=== PATIENT | female | born 1995 | race Hispanic/Latino ===

== ENCOUNTER 2019-01-11 19:17 | Emergency (ER) | payer OTHER ==
[2019-01-11 20:11] LABS: Urine Blood NEGATIVE (NEG); Urine Glucose NEGATIVE (NEG); Urine Protein NEGATIVE (NEG)
[2019-01-11 20:25] LABS: Urine Amorphous Sediment TRACE /HPF (NONE SEEN); Urine Bacteria <20 /HPF (<20); Urine Culture Reflex Order NOT NEEDED; Urine Mucus SLIGHT /HPF (NONE SEEN); Urine RBC <5 /HPF (NONE SEEN)
[2019-01-11] MEDS ORDERED: AZITHROMYCIN 1 GM PACKET ONE (21:05)
[2019-01-11] MEDS ORDERED: CEFTRIAXONE 250 MG/VIAL ONE (21:05)
[2019-01-11] MEDS ORDERED: WATER FOR INJ,STERILE 10 ML ONE (21:06)
--- NOTE | 2019-01-11 21:10 | ER ---
Nurse's Notes [facility] Name: Gabriella Henley Age: 23 yrs Sex: Female : 1995 Arrival Date: 01/11/2019 Time: 19:21 Bed 13 Private MD: Diagnosis: Vaginal Discharge; Bacterial Vaginosis Presentation: 01/11 19:25 Presenting complaint: Patient states: White vaginal discharge after unprotected sex 2 aj days ago with vaginal pain and itching. Transition of care: patient was not received from another setting of care. Onset of symptoms was January 09, 2019. Risk Assessment: Do you want to hurt yourself or someone else? Patient reports no desire to harm self or others. Initial Sepsis Screen: Does the patient meet any 2 criteria? No. Patient's initial sepsis screen is negative. Does the patient have a suspected source of infection? No. Patient's initial sepsis screen is negative. Care prior to arrival: None. 19:25 Method Of Arrival: Ambulatory aj 19:25 Acuity: BENITA 3 aj Triage Assessment: 19:26 General: Appears in no apparent distress. comfortable, Behavior is calm, cooperative, aj appropriate for age. Pain: Complains of pain in pelvis. Neuro: Level of Consciousness is awake, alert, obeys commands, Oriented to person, place, time, situation, Appropriate for age. Respiratory: Airway is patent Respiratory effort is even, unlabored, Respiratory pattern is regular, symmetrical. : Reports discharge, white, pain in suprapubic area. 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 - Social history:: Smoking status: Patient/guardian denies using tobacco. - Ebola Screening: : No symptoms or risks identified at this time. Screenin:33 Abuse screen: Denies threats or abuse. Denies injuries from another. Nutritional lp1 screening: No deficits noted. Tuberculosis screening: No symptoms or risk factors identified. Fall Risk None identified. Assessment: 19:45 General: Appears in no apparent distress. Behavior is calm, cooperative, appropriate lp1 for age. Pain: Denies pain. Neuro: Level of Consciousness is awake, alert, obeys commands, Oriented to person, place, time, situation. Cardiovascular: Patient's skin is warm and dry. Respiratory: No deficits noted. GI: No deficits noted. : Reports vaginal itching. EENT: No deficits noted. Derm: Skin is pink, warm \T\ dry. Musculoskeletal: No deficits noted. 21:06 Reassessment: Patient appears in no apparent distress at this time. Patient is alert, lp1 oriented x 3, equal unlabored respirations, skin warm/dry/pink. Vital Signs: 19:26 BP 115 / 58; Pulse 78; Resp 18; Temp 98.3; Pulse Ox 99% on R/A; Weight 56.7 kg; Height aj 4 ft. 11 in. (149.86 cm); 21:06 BP 110 / 64; Pulse 62; Resp 16; Pulse Ox 100% on R/A; Pain 0/10; lp1 19:26 Body Mass Index 25.25 (56.70 kg, 149.86 cm) ED Course: 19:21 Patient arrived in ED. ag3 19:26 Triage completed. aj 19:26 Arm band placed on left wrist. Patient placed in an exam room. 19:29 Gerardo Whyte PA is PHCP. [facility] 19:29 Amado Quiroga MD is Attending Physician. [facility] 19:43 Gretel Fitzpatrick, ROWAN is Primary Nurse. lp1 19:45 Patient has correct armband on for positive identification. lp1 20:15 Assist provider with pelvic exam: Set up pelvic tray. Performed by Gerardo HANSON lp1 Specimens sent to lab. 20:34 Patient did not have IV access during this emergency room visit. lp1 Administered Medications: 21:06 Drug: Rocephin (cefTRIAXone) 250 mg Route: IM; Site: right deltoid; lp1 21:29 Follow up: Response: No adverse reaction lp1 21:06 Drug: AZITHromycin 1 grams Route: PO; lp1 21:29 Follow up: Response: No adverse reaction 1 Outcome: 21:09 Discharge ordered by . [facility] 21:29 Discharged to home ambulatory. lp1 21:29 Condition: good 21:29 Discharge instructions given to patient, Instructed on discharge instructions, follow up and referral plans. medication usage, Demonstrated understanding of instructions, follow-up care, medications, Prescriptions given X 1. 21:30 Patient left the ED. lp1 Signatures: Lisa Leos RN RN Gerardo De Souza PA PA jmm Pena, Laura, RN RN lp1 Hannah Fitzpatrick ag3
--- NOTE | 2019-01-11 21:10 | EDPHYS ---
Physician Documentation [facility] Name: Gabriella Henley Age: 23 yrs Sex: Female : 1995 Arrival Date: 01/11/2019 Time: 19:21 Bed 13 Private MD: ED Physician Amado Quiroga HPI: 01/11 19:40 This 23 yrs old Female presents to ER via Ambulatory with complaints of jmm Vaginal Discharge. 19:40 The patient presents with vaginal discharge. Onset: The symptoms/episode began/occurred jmm gradually, 2 day(s) ago. Modifying factors: The symptoms are alleviated by nothing, the symptoms are aggravated by nothing. Associated signs and symptoms: Pertinent positives: vaginal discharge, Pertinent negatives: fever. Patient complains of itching and discharge. Recent intercourse. Denies abdominal pain, denies fever. . 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 - Social history:: Smoking status: Patient/guardian denies using tobacco. - Ebola Screening: : No symptoms or risks identified at this time. ROS: 19:40 Constitutional: Negative for fever, chills, and weight loss, Cardiovascular: Negative jmm for chest pain, palpitations, and edema, Respiratory: Negative for shortness of breath, cough, wheezing, and pleuritic chest pain. 19:40 : Positive for urinary symptoms, vaginal discharge, vaginal itching. 19:40 All other systems are negative. Exam: 19:40 Constitutional: This is a well developed, well nourished patient who is awake, alert, jmm and in no acute distress. Head/Face: atraumatic. Eyes: EOMI, no conjunctival erythema appreciated ENT: Moist Mucus Membranes Neck: Trachea midline, Supple Chest/axilla: Normal chest wall appearance and motion. Cardiovascular: Regular rate and rhythm. No edema appreciated 19:40 Back: Normal ROM Skin: General appearance color normal MS/ Extremity: Moves all extremities, no obvious deformities appreciated, no edema noted to the lower extremities Neuro: Awake and alert, normal gait Psych: Behavior is normal, Mood is normal, Patient is cooperative and pleasant 19:40 Cardiovascular: Rate: normal, Rhythm: regular. 19:40 Respiratory: the patient does not display signs of respiratory distress, Respirations: normal, Breath sounds: are clear throughout. 19:40 : Pelvic Exam: bimanual exam reveals normal findings, no cervical motion tenderness, discharge, frothy. Vital Signs: 19:26 BP 115 / 58; Pulse 78; Resp 18; Temp 98.3; Pulse Ox 99% on R/A; Weight 56.7 kg; Height aj 4 ft. 11 in. (149.86 cm); 21:06 BP 110 / 64; Pulse 62; Resp 16; Pulse Ox 100% on R/A; Pain 0/10; lp1 19:26 Body Mass Index 25.25 (56.70 kg, 149.86 cm) [facility]: 19:42 Patient medically screened. [facility] 21:08 Data reviewed: vital signs, nurses notes. Counseling: I had a detailed discussion with [facility] the patient and/or guardian regarding: the historical points, exam findings, and any diagnostic results supporting the discharge/admit diagnosis, lab results, the need for outpatient follow up, to return to the emergency department if symptoms worsen or persist or if there are any questions or concerns that arise at home. ED course: Patient is advised to follow up with pcp for reevaluation and otherwise advised to return to the ED if she develops pain or fever. Patient understood and agrees with the plan of care. . 01/11 19:42 Order name: GC (GONORR/CHLAMYDIA) Probe [facility] 01/11 19:42 Order name: Wet Prep; Complete Time: 21:12 [facility] 01/11 19:42 Order name: Urine Microscopic Only; Complete Time: 20:30 [facility] 01/11 20:09 Order name: Urine Dipstick--Ancillary (enter results) 01/11 20:09 Order name: Urine --Ancillary (enter results); Complete Time: 20:30 01/11 20:11 Order name: Urine Dipstick-Ancillary; Complete Time: 20:30 [facility] 01/11 19:42 Order name: Gown patient; Complete Time: 20:31 [facility] 01/11 19:42 Order name: Pelvic Exam Setup; Complete Time: 20:31 [facility] 01/11 19:42 Order name: Urine Dipstick-Ancillary (obtain specimen); Complete Time: 20:08 [facility] Administered Medications: 21:06 Drug: Rocephin (cefTRIAXone) 250 mg Route: IM; Site: right deltoid; lp1 21:29 Follow up: Response: No adverse reaction lp1 21:06 Drug: AZITHromycin 1 grams Route: PO; lp1 21:29 Follow up: Response: No adverse reaction lp1 Disposition: 21:08 Chart complete. [facility] 01/12 07:19 Co-signature as Attending Physician, Amado Quiroga MD I agree with the assessment and antione plan of care. Disposition: 01/11/19 21:09 Discharged to Home. Impression: Vaginal Discharge, Bacterial Vaginosis. - Condition is Stable. - Discharge Instructions: Bacterial Vaginosis, Pelvic Exam. - Prescriptions for Flagyl 500 mg Oral Tablet - take 1 tablet by ORAL route every 12 hours for 7 days; 14 tablet. - Medication Reconciliation Form, Thank You Letter, Antibiotic Education, Prescription Opioid Use form. - Follow up: Private Physician; When: 2 - 3 days; Reason: Recheck today's complaints, Continuance of care, Re-evaluation by your physician. Signatures: Dispatcher [employer] EDLisa Downey, RN Amado Navarrete MD MD cha Mickail, Joel, PA PA [facility] Gretel Fitzpatrick RN RN lp1 Corrections: (The following items were deleted from the chart) 01/11 21:13 21:09 01/11/2019 21:09 Discharged to Home. Impression: Vaginal Discharge. Condition is [facility] Stable. Forms are Medication Reconciliation Form, Thank You Letter, Antibiotic Education, Prescription Opioid Use. Follow up: Private Physician; When: 2 - 3 days; Reason: Recheck today's complaints, Continuance of care, Re-evaluation by your physician. [facility] 21:30 21:13 01/11/2019 21:09 Discharged to Home. Impression: Vaginal Discharge; Bacterial lp1 Vaginosis. Condition is Stable. Discharge Instructions: Pelvic Exam, Bacterial Vaginosis. Prescriptions for Flagyl 500 mg Oral Tablet - take 1 tablet by ORAL route every 12 hours for 7 days; 14 tablet. and Forms are Medication Reconciliation Form, Thank You Letter, Antibiotic Education, Prescription Opioid Use. Follow up: Private Physician; When: 2 - 3 days; Reason: Recheck today's complaints, Continuance of care, Re-evaluation by your physician. [facility]
[2019-01-15 10:42] LABS: C.trachomatis RNA,TMA Not Detected (Not Detected)
== END 2019-01-11 21:30 | disposition home or self-care (01) ==
LOC: ER 19:17
DX: N76.0 Acute vaginitis (principal)
CPT/HCPCS: 81003; 81015; 81025; 87210; 87490; 87590; 96372; 99284; J0696

== ENCOUNTER 2022-01-03 09:12 | Emergency (ER) | payer SELFPAY ==
--- NOTE | 2022-01-03 11:11 | EDPHYS ---
Physician Documentation [facility] Name: Gabriella Vance Age: 26 yrs Sex: Female : 1995 Arrival Date: 01/03/2022 Time: 09:14 Bed 12 Private MD: ED Physician Antonio Max HPI: 01/03 10:00 This 26 yrs old Female presents to ER via Ambulatory with complaints of Sore cp Throat. 10:00 The patient presents with sore throat. The patient describes throat pain as constant. cp Onset: The symptoms/episode began/occurred 3 day(s) ago, and became worse today. Severity of symptoms: in the emergency department the symptoms are unchanged, despite home interventions. Associated signs and symptoms: Pertinent positives: cough, Pertinent negatives diarrhea, dysphagia, fever, headache, vomiting. 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 - Social history:: Smoking status: Patient denies any tobacco usage or history of. ROS: 10:05 Constitutional: Negative for body aches, chills, fever, poor PO intake. cp 10:05 Respiratory: Positive for cough, Negative for shortness of breath, wheezing. cp 10:05 Abdomen/GI: Negative for abdominal pain, nausea, vomiting, and diarrhea. 10:05 Cardiovascular: Negative for chest pain. cp 10:05 Eyes: Negative for injury, pain, redness, and discharge. cp 10:05 ENT: Negative for drainage from ear(s), ear pain, sinus congestion, sinus pain, difficulty swallowing, difficulty handling secretions. 10:05 Neck: Negative for stiffness. 10:05 Neuro: Negative for altered mental status, headache, weakness. 10:05 All other systems are negative. Exam: 10:10 Constitutional: The patient appears in no acute distress, alert, awake, non-toxic, well cp developed, well nourished. 10:10 Head/Face: Normocephalic, atraumatic. cp 10:10 Eyes: Periorbital structures: appear normal, Conjunctiva: normal, no exudate, no injection, Lids and lashes: appear normal, bilaterally. 10:10 ENT: External ear(s): are unremarkable, Ear canal(s): are normal, clear, TM's: dullness, bilaterally, Nose: is normal, Mouth: Lips: moist, Oral mucosa: moist, Posterior pharynx: Airway: no evidence of obstruction, patent, Tonsils: bilaterally enlarged, with erythema, with exudate, Uvula: midline, erythema, that is moderate, Voice: is normal. 10:10 Neck: ROM/movement: is normal, is supple, without pain, no range of motions limitations, no meningismus, no nuchal rigidity, Lymph nodes: lymphadenopathy is appreciated, anterior cervical nodes. 10:10 Chest/axilla: Inspection: normal. 10:10 Cardiovascular: Rate: normal, Rhythm: regular. 10:10 Respiratory: the patient does not display signs of respiratory distress, Respirations: normal, no use of accessory muscles, no retractions, labored breathing, is not present, Breath sounds: are clear throughout, no decreased breath sounds, no stridor, no wheezing. 10:10 Abdomen/GI: Inspection: abdomen appears normal, Palpation: abdomen is soft and non-tender, in all quadrants. Vital Signs: 09:25 BP 116 / 77; Pulse 92; Resp 16; Temp 98.1; Pulse Ox 100% on R/A; Weight 68.04 kg; iw Height 4 ft. 11 in. (149.86 cm); Pain 9/10; 09:25 Body Mass Index 30.30 (68.04 kg, 149.86 cm) iw MDM: 09:31 Patient medically screened. cp 10:00 Differential diagnosis: group A strep tonsillitis, peritonsillar abscess pharyngitis, cp retropharyngeal abcess tonsillitis, uvulitis. 11:10 Data reviewed: vital signs, nurses notes, lab test result(s). cp 11:10 Counseling: I had a detailed discussion with the patient and/or guardian regarding: the cp historical points, exam findings, and any diagnostic results supporting the discharge/admit diagnosis, lab results, to return to the emergency department if symptoms worsen or persist or if there are any questions or concerns that arise at home. 01/03 09:41 Order name: Strep cp 01/03 10:11 Order name: Throat Culture EDMS Administered Medications: No medications were administered Disposition Summary: 01/03/22 11:10 Discharge Ordered Location: Home cp Problem: new cp Symptoms: are unchanged cp Condition: Stable cp Diagnosis - Acute tonsillitis, unspecified cp Followup: cp - With: Private Physician - When: 1 - 2 days - Reason: Worsening of condition Discharge Instructions: - Discharge Summary Sheet cp - Tonsillitis cp Forms: - Medication Reconciliation Form cp - Thank You Letter cp - Antibiotic Education cp - Prescription Opioid Use cp - Work release form eb Prescriptions: - clarithromycin 500 mg Oral tablet - take 1 tablet by ORAL route 2 times per day; 20 tablet; Refills: 0, Product cp Selection Permitted - Tessalon Perles 100 mg Oral Capsule - take 1 capsule by ORAL route every 8 hours As needed; 15 capsule; Refills: 0, cp Product Selection Permitted Signatures: Dispatcher [employer] Alia West RN RN Amado Maddox PA PA cp
--- NOTE | 2022-01-03 11:11 | ER ---
Nurse's Notes [facility] Name: Gabriella Vance Age: 26 yrs Sex: Female : 1995 Arrival Date: 01/03/2022 Time: 09:14 Bed 12 Private MD: Diagnosis: Acute tonsillitis, unspecified Presentation: 01/03 09:25 Chief complaint: Patient states: a week ago I had a cold, for past three days has sore iw throat, worse today , no fever. Coronavirus screen: At this time, the client does not indicate any symptoms associated with coronavirus-19. Ebola Screen: Patient negative for fever greater than or equal to 101.5 degrees Fahrenheit, and additional compatible Ebola Virus Disease symptoms Patient denies exposure to infectious person. Patient denies travel to an Ebola-affected area in the 21 days before illness onset. No symptoms or risks identified at this time. Initial Sepsis Screen: Does the patient meet any 2 criteria? No. Patient's initial sepsis screen is negative. Does the patient have a suspected source of infection? No. Patient's initial sepsis screen is negative. Risk Assessment: Do you want to hurt yourself or someone else? Patient reports no desire to harm self or others. Onset of symptoms was December 31, 2021. 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 - Social history:: Smoking status: Patient denies any tobacco usage or history of. Screenin:20 Abuse screen: Denies threats or abuse. Denies injuries from another. Nutritional iw screening: No deficits noted. Tuberculosis screening: No symptoms or risk factors identified. Fall Risk None identified. Assessment: 10:20 General: Appears in no apparent distress. Behavior is calm, cooperative. Pain: iw Complains of pain in throat. Respiratory: Airway is patent Respiratory effort is even, unlabored. EENT: Throat has enlarged tonsils on right. Vital Signs: 09: BP 116 / 77; Pulse 92; Resp 16; Temp 98.1; Pulse Ox 100% on R/A; Weight 68.04 kg; iw Height 4 ft. 11 in. (149.86 cm); Pain 9/; 09:25 Body Mass Index 30.30 (68.04 kg, 149.86 cm) iw ED Course: 09:14 Patient arrived in ED. am2 09:19 Amado Brown PA is PHCP. cp 09:19 Antonio Max MD is Attending Physician. cp 09:26 Triage completed. iw 09:26 Arm band placed on. iw 09:27 Alia Bosch, RN is Primary Nurse. iw 09:56 Strep Sent. iw Administered Medications: No medications were administered Outcome: 11:10 Discharge ordered by . cp 11:15 Patient left the ED. iw Signatures: Alia Bosch RN RN iw Amado Brown PA PA cp Lisa Malagon am2
[2022-01-03 11:24] VITALS: BP 116/77; TEMP 98.1; O2SAT 100
== END 2022-01-03 11:15 | disposition home or self-care (01) ==
LOC: ER 09:12
DX: J03.90 Acute tonsillitis, unspecified (principal)
CPT/HCPCS: 87070; 87081; 99282

== ENCOUNTER 2022-01-20 22:02 | Emergency (ER) | payer SELFPAY ==
[2022-01-20 23:40] LABS: Urine Blood Negative (Negative); Urine Glucose Negative (Negative); Urine Protein 1+ (Negative); Urine pH 8.5 (5.0-7.0)
[2022-01-21 00:27] LABS: Urine Bacteria 20-50 /HPF (<20); Urine RBC <5 /HPF (NONE SEEN)
--- NOTE | 2022-01-21 01:22 | EDPHYS ---
Physician Documentation [facility] Name: Gabriella Vance Age: 26 yrs Sex: Female : 1995 Arrival Date: 01/20/2022 Time: 22:04 Bed 11 Private MD: ED Physician Amado Quiroga HPI: 01/21 01:16 This 26 yrs old Female presents to ER via Ambulatory with complaints of Sore antione Throat. 01:16 The patient presents with sore throat. The patient describes throat pain as burning. antione Onset: The symptoms/episode began/occurred 8 day(s) ago. Severity of symptoms: At their worst the symptoms were mild, in the emergency department the symptoms are unchanged. Modifying factors: The symptoms are alleviated by nothing, the symptoms are aggravated by nothing. Associated signs and symptoms: The patient has no apparent associated signs or symptoms. The patient has experienced similar episodes in the past, a few times. 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 - Social history:: Smoking status: Patient denies any tobacco usage or history of. ROS: 01/21 01:17 Constitutional: Negative for fever, chills, and weight loss, Eyes: Negative for injury, antione pain, redness, and discharge, Neck: Negative for injury, pain, and swelling, Cardiovascular: Negative for chest pain, palpitations, and edema, Respiratory: Negative for shortness of breath, cough, wheezing, and pleuritic chest pain, Abdomen/GI: Negative for abdominal pain, nausea, vomiting, diarrhea, and constipation, Back: Negative for injury and pain, : Negative for injury, bleeding, discharge, and swelling, MS/Extremity: Negative for injury and deformity, Skin: Negative for injury, rash, and discoloration, Neuro: Negative for headache, weakness, numbness, tingling, and seizure, Psych: Negative for depression, anxiety, suicide ideation, homicidal ideation, and hallucinations, Allergy/Immunology: Negative for hives, rash, and allergies, Endocrine: Negative for neck swelling, polydipsia, polyuria, polyphagia, and marked weight changes, Hematologic/Lymphatic: Negative for swollen nodes, abnormal bleeding, and unusual bruising. ENT: Positive for sore throat. Exam: 01:17 Constitutional: This is a well developed, well nourished patient who is awake, alert, antione and in no acute distress. Head/Face: Normocephalic, atraumatic. Eyes: Pupils equal round and reactive to light, extra-ocular motions intact. Lids and lashes normal. Conjunctiva and sclera are non-icteric and not injected. Cornea within normal limits. Periorbital areas with no swelling, redness, or edema. ENT: Nares patent. No nasal discharge, no septal abnormalities noted. Tympanic membranes are normal and external auditory canals are clear. Oropharynx with no redness, swelling, or masses, exudates, or evidence of obstruction, uvula midline. Mucous membranes moist. Neck: Trachea midline, no thyromegaly or masses palpated, and no cervical lymphadenopathy. Supple, full range of motion without nuchal rigidity, or vertebral point tenderness. No Meningismus. Chest/axilla: Normal chest wall appearance and motion. Nontender with no deformity. No lesions are appreciated. Cardiovascular: Regular rate and rhythm with a normal S1 and S2. No gallops, murmurs, or rubs. Normal PMI, no JVD. No pulse deficits. Respiratory: Lungs have equal breath sounds bilaterally, clear to auscultation and percussion. No rales, rhonchi or wheezes noted. No increased work of breathing, no retractions or nasal flaring. Abdomen/GI: Soft, non-tender, with normal bowel sounds. No distension or tympany. No guarding or rebound. No evidence of tenderness throughout. Back: No spinal tenderness. No costovertebral tenderness. Full range of motion. Female : Normal external genitalia. Skin: Warm, dry with normal turgor. Normal color with no rashes, no lesions, and no evidence of cellulitis. MS/ Extremity: Pulses equal, no cyanosis. Neurovascular intact. Full, normal range of motion. Neuro: Awake and alert, GCS 15, oriented to person, place, time, and situation. Cranial nerves II-XII grossly intact. Motor strength 5/5 in all extremities. Sensory grossly intact. Cerebellar exam normal. Normal gait. Psych: Awake, alert, with orientation to person, place and time. Behavior, mood, and affect are within normal limits. Vital Signs: 01/20 22:53 BP 119 / 81; Pulse 95; Resp 18; Temp 99.1; Pulse Ox 100% ; Weight 66.22 kg; Height 5 vc1 ft. 0 in. (152.40 cm); Pain 8/10; 01/21 01:38 BP 116 / 84 LA Sitting (auto/); Pulse 79 MON; Resp 16 S; Temp 98.1; Pulse Ox 97% on R/A;ds4 01/20 22:53 Body Mass Index 28.51 (66.22 kg, 152.40 cm) vc1 MDM: 01/20 23:56 Patient medically screened. [facility] 01/21 01:20 Differential diagnosis: laryngitis, pharyngitis. Data reviewed: vital signs, nurses [facility] notes, lab test result(s). Data interpreted: quality assurance monitor final: not applicable for this patient encounter. rate is 95 beats/min, rhythm is regular, Pulse oximetry: on room air is 100 %. Counseling: I had a detailed discussion with the patient and/or guardian regarding: the historical points, exam findings, and any diagnostic results supporting the discharge/admit diagnosis, lab results, the need for outpatient follow up, for definitive care, a family practitioner. 01/20 22:59 Order name: Flu; Complete Time: 01:09 [facility] 01/20 22:59 Order name: Strep; Complete Time: 01:09 [facility] 01/20 23:01 Order name: Group A Streptococcus Rapid Sc; Complete Time: 01: [facility] 01/20 23:01 Order name: COVID-19 SARS RT PCR (Document "Date of Onset" if Symptomatic) [facility] 01/20 23:40 Order name: Urine Microscopic Only; Complete Time: 01:09 [facility] 01/20 22:59 Order name: Urine Dipstick-Ancillary (obtain specimen); Complete Time: 23:41 [facility] 01/20 23:41 Order name: Urine Dipstick-Ancillary; Complete Time: 01:09 [facility] 01/20 23:41 Order name: Urine Test (obtain specimen); Complete Time: 23:41 [facility] 01/20 23:41 Order name: Urine --Ancillary (enter results); Complete Time: 01:09 [facility] 01/20 23:55 Order name: Throat Culture EDMS 01/21 00:29 Order name: Urine Culture EDMS Administered Medications: No medications were administered Disposition Summary: 01/21/22 01:21 Discharge Ordered Location: Home antione Problem: new antione Symptoms: have improved antione Condition: Stable antione Diagnosis - Acute pharyngitis, unspecified antione Followup: [facility] - With: Private Physician - When: 2 - 3 days - Reason: Recheck today's complaints, Continuance of care, Re-evaluation by your physician Discharge Instructions: - Discharge Summary Sheet antione - Pharyngitis antione - Sore Throat antione Forms: - Medication Reconciliation Form antione - Thank You Letter antione - Antibiotic Education antione - Prescription Opioid Use antione Signatures: Dispatcher [employer] Amado Moore MD MD cha Westbrook, MyKena mw2 Margartete Tirado RN RN vc1
--- NOTE | 2022-01-21 01:22 | ER ---
Nurse's Notes [facility] Name: Gabriella Vance Age: 26 yrs Sex: Female : 1995 Arrival Date: 01/20/2022 Time: 22:04 Bed 11 Private MD: Diagnosis: Acute pharyngitis, unspecified Presentation: 01/20 22:53 Chief complaint: Patient states: "I was here 2 weeks ago and diagnosed with tonsillitis vc1 but I don't think the antibiotic helped. (Pt stated she didn't finish the antibiotic) I also have this cough. I also have a burning sensation when I pee.". Coronavirus screen: Vaccine status: Patient reports being unvaccinated. cough unrelated to allergies, fever, sore throat, Client presents with at least one sign or symptom that may indicate coronavirus-19. Standard/surgical mask placed on the client. Provider contacted for isolation considerations. Ebola Screen: No symptoms or risks identified at this time. Initial Sepsis Screen: Does the patient meet any 2 criteria? No. Patient's initial sepsis screen is negative. Does the patient have a suspected source of infection? No. Patient's initial sepsis screen is negative. Risk Assessment: Do you want to hurt yourself or someone else? Patient reports no desire to harm self or others. Onset of symptoms is unknown. 22:53 Method Of Arrival: Ambulatory vc1 22:53 Acuity: BENITA 3 vc1 Triage Assessment: 01/21 01:38 General: Appears in no apparent distress. Behavior is calm, cooperative. 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 - Social history:: Smoking status: Patient denies any tobacco usage or history of. Screenin/16 01:37 Abuse screen: Denies threats or abuse. Denies injuries from another. Nutritional kd3 screening: No deficits noted. Tuberculosis screening: No symptoms or risk factors identified. Fall Risk None identified. Assessment: 01:37 Pain: Denies pain. Pain: Complains of pain in throat. Respiratory: Airway is patent kd3 Respiratory effort is even, unlabored. Respiratory: Breath sounds are clear bilaterally. EENT: Throat is reddened. Vital Signs: 01/20 22:53 BP 119 / 81; Pulse 95; Resp 18; Temp 99.1; Pulse Ox 100% ; Weight 66.22 kg; Height 5 vc1 ft. 0 in. (152.40 cm); Pain 8/10; 01/21 01:38 BP 116 / 84 LA Sitting (auto/); Pulse 79 MON; Resp 16 S; Temp 98.1; Pulse Ox 97% on R/A;ds4 01/20 22:53 Body Mass Index 28.51 (66.22 kg, 152.40 cm) vc1 ED Course: 01/20 22:04 Patient arrived in ED. bp1 22:56 Triage completed. vc1 22:57 Arm band placed on left wrist. vc1 23:56 Amado Quiroga MD is Attending Physician. antione 01/21 01:36 Annie Hoffman, RN is Primary Nurse. kd3 01:37 Patient has correct armband on for positive identification. kd3 01:37 No provider procedures requiring assistance completed. Patient did not have IV access kd3 during this emergency room visit. Administered Medications: No medications were administered Medication: 01:38 VIS not applicable for this client. kd3 Outcome: 01:21 Discharge ordered by . [facility] 01:37 Discharged to home ambulatory. kd3 01:37 Condition: stable 01:37 Discharge instructions given to patient, family, Instructed on discharge instructions, follow up and referral plans. Demonstrated understanding of instructions, follow-up care. 01:47 Patient left the ED. kd3 Signatures: Amado Quiroga MD MD cha Swanson, Donovan ds4 Justyna Miranda bp1 Annie Hoffman, RN RN kd3 Margarette Tirado RN RN vc1
[2022-01-21 01:52] VITALS: BP 116/84; TEMP 98.1; O2SAT 97
== END 2022-01-21 01:47 | disposition home or self-care (01) ==
LOC: ER 22:02
DX: J02.9 Acute pharyngitis, unspecified (principal); Z20.822 Contact with and (suspected) exposure to COVID-19
CPT/HCPCS: 81003; 81015; 81025; 87070; 87081; 87086; 87088; 87804; 99281; U0003

== ENCOUNTER 2022-06-16 12:07 | Emergency (ER) | payer OTHER, SELFPAY ==
[2022-06-16 13:22] LABS: Absolute Lymphocytes (CBC) 1.5 K/uL (0.7-4.9); Hematocrit 40.9 % (36.0-45.0); MCV 80.3 fL (80-100); MPV 9.1 fL (7.6-11.3); RBC Red Blood Cell Count 5.09 M/uL (3.86-4.86)
[2022-06-16 13:48] LABS: Urine Blood Negative (Negative); Urine Glucose Negative (Negative); Urine Protein Negative (Negative); Urine Specific Gravity 1.025 (1.005-1.030); Urine pH 5.5 (5.0-7.0)
[2022-06-16 13:53] LABS: Potassium 3.5 mmol/L (3.5-5.1)
[2022-06-16 14:46] LABS: Urine Specific Gravity/Preg 1.025 (1.005-1.030)
--- NOTE | 2022-06-16 15:02 | RAD REPORT ---
EXAM DESCRIPTION: US - Transvaginal OB - 06/16/2022 2:53 pm CLINICAL HISTORY: ABD CRAMPING, COMPARISON: No comparisons FINDINGS: Normal size uterus is seen with no myometrial abnormality identified. Single normal shaped intrauterine gestational sac is identified. Yolk sac and pole are seen. Yolk sac and crown-rum p length measurements yield a 7 week 0 day age. Calculated LIDIA is 02/02/2023. Heart rate is 153 BPM. A minimal subchorionic hemorrhage is present along the inferior margin of the gestational sac. This is not clinically significant size. Right ovary is unremarkable. No right adnexal abnormality. Left ovary was not visualized possibly due to prominent bowel. No left adnexal mass seen. IMPRESSION: Single 7 week 0 day IUP with normal heart rate. Small subchorionic hemorrhage is seen currently not of a clinically significant size. No adnexal abnormality seen.
--- NOTE | 2022-06-16 16:12 | EDPHYS ---
Physician Documentation [facility] Name: Gabriella Vance Age: 27 yrs Sex: Female : 1995 Arrival Date: 06/16/2022 Time: 12:07 Bed 16 Private MD: ED Physician Antonio Max HPI: 06/16 18:34 This 27 yrs old Female presents to ER via Ambulatory with complaints of Pelvic snw Pain. 18:34 The patient presents with a desire for a test, tenderness to mid pelvic area snw x 4 days, no bleeding, no discharge. Onset: The symptoms/episode began/occurred suddenly, 4 day(s) ago, and became persistent. Associated signs and symptoms: The patient has no apparent associated signs or symptoms. The patient has not experienced similar symptoms in the past. 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 - Social history:: Smoking status: Patient denies any tobacco usage or history of. ROS: 18:32 Constitutional: Negative for fever, chills, and weight loss, Eyes: Negative for injury, snw pain, redness, and discharge, ENT: Negative for injury, pain, and discharge, Neck: Negative for injury, pain, and swelling, Cardiovascular: Negative for chest pain, palpitations, and edema, Respiratory: Negative for shortness of breath, cough, wheezing, and pleuritic chest pain, Abdomen/GI: Negative for abdominal pain, nausea, vomiting, diarrhea, and constipation, Back: Negative for injury and pain, MS/Extremity: Negative for injury and deformity, Skin: Negative for injury, rash, and discoloration, Neuro: Negative for headache, weakness, numbness, tingling, and seizure. 18:32 : Positive for no vaginal bleeding, no discharge, + test. Mild pain to suprapubic/pelvic area. G4. Exam: 18:31 Constitutional: This is a well developed, well nourished patient who is awake, alert, snw and in no acute distress. Head/Face: Normocephalic, atraumatic. Eyes: Pupils equal round and reactive to light, extra-ocular motions intact. Lids and lashes normal. Conjunctiva and sclera are non-icteric and not injected. Cornea within normal limits. Periorbital areas with no swelling, redness, or edema. ENT: Nares patent. No nasal discharge, no septal abnormalities noted. Tympanic membranes are normal and external auditory canals are clear. Oropharynx with no redness, swelling, or masses, exudates, or evidence of obstruction, uvula midline. Mucous membranes moist. Neck: Trachea midline, no thyromegaly or masses palpated, and no cervical lymphadenopathy. Supple, full range of motion without nuchal rigidity, or vertebral point tenderness. No Meningismus. Chest/axilla: Normal chest wall appearance and motion. Nontender with no deformity. No lesions are appreciated. Cardiovascular: Regular rate and rhythm with a normal S1 and S2. No gallops, murmurs, or rubs. Normal PMI, no JVD. No pulse deficits. Respiratory: Lungs have equal breath sounds bilaterally, clear to auscultation and percussion. No rales, rhonchi or wheezes noted. No increased work of breathing, no retractions or nasal flaring. Back: No spinal tenderness. No costovertebral tenderness. Full range of motion. Skin: Warm, dry with normal turgor. Normal color with no rashes, no lesions, and no evidence of cellulitis. MS/ Extremity: Pulses equal, no cyanosis. Neurovascular intact. Full, normal range of motion. Neuro: Awake and alert, GCS 15, oriented to person, place, time, and situation. Cranial nerves II-XII grossly intact. Motor strength 5/5 in all extremities. Sensory grossly intact. Cerebellar exam normal. Normal gait. Psych: Awake, alert, with orientation to person, place and time. Behavior, mood, and affect are within normal limits. 18:31 Abdomen/GI: Inspection: abdomen appears normal, Bowel sounds: normal, Palpation: mild abdominal tenderness, in the suprapubic area. Vital Signs: 12:16 BP 118 / 78; Pulse 84; Resp 17; Temp 98.5; Pulse Ox 99% ; Weight 58.97 kg; Height 5 ft. ll1 0 in. (152.40 cm); Pain 7/10; 12:30 BP 112 / 68; Pulse 78; Resp 16; Pulse Ox 99% on R/A; ko1 16:25 BP 122 / 78; Pulse 82; Pulse Ox 99% on R/A; ko1 12:16 Body Mass Index 25.39 (58.97 kg, 152.40 cm) ll1 MDM: 12:25 Patient medically screened. snw 18:33 Data reviewed: vital signs, nurses notes. Data interpreted: Pulse oximetry: on room air snw is 99 %. Interpretation: normal. Counseling: I had a detailed discussion with the patient and/or guardian regarding: the historical points, exam findings, and any diagnostic results supporting the discharge/admit diagnosis, lab results, radiology results, the need for outpatient follow up, for definitive care. Response to treatment: the patient's symptoms have mildly improved after treatment. Special discussion: Based on the patient's Hx, exam, and Dx evaluation, there is no indication for emergent surgery or inpatient Tx. It is understood by the patient/guardian that if the Sx's persist or worsen they need to return immediately for re-evaluation. Based on the history and exam findings, there is no indication for further emergent testing or inpatient evaluation. I discussed with the patient/guardian the need to see the OB Gyne specialist for further evaluation of the symptoms. 06/16 12:23 Order name: Abo/rh Typing; Complete Time: 14:42 snw 06/16 12:23 Order name: Basic Metabolic Panel; Complete Time: 13:55 snw 06/16 12:23 Order name: CBC with Diff; Complete Time: 13:27 snw 06/16 12:23 Order name: Quantitative Hcg; Complete Time: 13:55 snw 06/16 13:48 Order name: Urine Dipstick-Ancillary; Complete Time: 13:51 EDMS 06/16 13:49 Order name: Urine --Ancillary (enter results); Complete Time: 14:48 bd 06/16 12:23 Order name: IV Saline Lock; Complete Time: 12:59 snw 06/16 12:23 Order name: Labs collected and sent; Complete Time: 12:59 snw 06/16 12:23 Order name: NPO; Complete Time: 12:24 snw 06/16 12:23 Order name: Urine Dipstick-Ancillary (obtain specimen); Complete Time: 13:50 snw 06/16 12:23 Order name: Urine Test (obtain specimen); Complete Time: 13:50 snw 06/16 13:56 Order name: US Transvaginal Ob; Complete Time: 15:36 snw Administered Medications: No medications were administered Disposition: 18:54 Co-signature as Attending Physician, Antonio Max MD I agree with the assessment and kdr plan of care. Disposition Summary: 06/16/22 16:11 Discharge Ordered Location: Home snw Condition: Stable snw Diagnosis - 7 WEEKS GESTATION OF snw - Threatened snw Followup: snw - With: Emergency Department - When: As needed - Reason: Worsening of condition Followup: snw - With: Private Physician - When: 2 - 3 days - Reason: Recheck today's complaints, Continuance of care, Re-evaluation by your physician Discharge Instructions: - Discharge Summary Sheet snw - Care snw - Threatened Miscarriage snw - First Trimester of snw Forms: - Medication Reconciliation Form snw - Thank You Letter snw - Antibiotic Education snw - Prescription Opioid Use snw Signatures: Dispatcher [employer] EDAntonio Salazar MD MD kdr Waters, Shelly, ENERGY SYSTEMS LABORATORY DIRECTOR-C ENERGY SYSTEMS LABORATORY DIRECTOR-Csnw Orestes Aguilera, RN RN ll1
--- NOTE | 2022-06-16 16:12 | ER ---
Nurse's Notes [facility] Name: Gabriella Vance Age: 27 yrs Sex: Female : 1995 Arrival Date: 06/16/2022 Time: 12:07 Bed 16 Private MD: Diagnosis: 7 WEEKS GESTATION OF ;Threatened Presentation: 06/16 12:16 Chief complaint: Patient states: Pelvic pain for 3 days. Had a positive test, ll1 LMP , . Coronavirus screen: Vaccine status: Patient reports being unvaccinated. Client denies travel out of the [place] in the last 14 days. At this time, the client does not indicate any symptoms associated with coronavirus-19. Ebola Screen: Patient denies travel to an Ebola-affected area in the 21 days before illness onset. Initial Sepsis Screen: Does the patient meet any 2 criteria? No. Patient's initial sepsis screen is negative. Does the patient have a suspected source of infection? No. Patient's initial sepsis screen is negative. Risk Assessment: Do you want to hurt yourself or someone else? Patient reports no desire to harm self or others. Onset of symptoms was June 14, 2022. 12:16 Method Of Arrival: Ambulatory ll1 12:16 Acuity: BENITA 3 ll1 Triage Assessment: 12:18 General: Appears in no apparent distress. Behavior is calm, cooperative, appropriate ll1 for age. Pain: Complains of pain in pelvis Quality of pain is described as crampy. : Reports cramping, in bilateral lower quadrant(s) lower back. 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 - Social history:: Smoking status: Patient denies any tobacco usage or history of. Screenin:30 Abuse screen: Denies threats or abuse. Denies injuries from another. Nutritional ko1 screening: No deficits noted. Tuberculosis screening: No symptoms or risk factors identified. Fall Risk None identified. Assessment: 12:30 General: Appears in no apparent distress. comfortable, Behavior is calm, cooperative, ko1 appropriate for age. Pain: Denies pain. Pain: Complains of pain in pelvis. Neuro: No deficits noted. Cardiovascular: No deficits noted. Respiratory: No deficits noted. GI: No deficits noted. : No deficits noted. EENT: No deficits noted. Derm: No deficits noted. Musculoskeletal: No deficits noted. Vital Signs: 12:16 BP 118 / 78; Pulse 84; Resp 17; Temp 98.5; Pulse Ox 99% ; Weight 58.97 kg; Height 5 ft. ll1 0 in. (152.40 cm); Pain 7/10; 12:30 BP 112 / 68; Pulse 78; Resp 16; Pulse Ox 99% on R/A; ko1 16:25 BP 122 / 78; Pulse 82; Pulse Ox 99% on R/A; ko1 12:16 Body Mass Index 25.39 (58.97 kg, 152.40 cm) ll1 ED Course: 12:07 Patient arrived in ED. as 12:18 Triage completed. ll1 12:18 Arm band placed on Patient placed in an exam room, on a stretcher. ll1 12:21 Valerie Hillman FNP-C is PHCP. snw 12:21 Antonio Max MD is Attending Physician. snw 12:24 Mary Bang, ROWAN is Primary Nurse. ko1 12:30 Patient has correct armband on for positive identification. Bed in low position. Call ko1 light in reach. Side rails up X 1. NIBP on. 12:30 No provider procedures requiring assistance completed. Inserted saline lock: 20 gauge ko1 in left antecubital area, using aseptic technique. Blood collected. 12:59 Abo/rh Typing Sent. ko1 12:59 Basic Metabolic Panel Sent. ko1 12:59 CBC with Diff Sent. ko1 12:59 Quantitative Hcg Sent. ko1 14:55 US Transvaginal Ob In Process Unspecified. EDMS 16:25 IV discontinued, intact, bleeding controlled, No redness/swelling at site. Pressure ko1 dressing applied. Administered Medications: No medications were administered Medication: 12:30 VIS not applicable for this client. ko1 Outcome: 16:11 Discharge ordered by . snw 16:25 Discharged to home ambulatory. ko1 16:25 Condition: stable 16:25 Discharge instructions given to patient, Instructed on discharge instructions, follow up and referral plans. Demonstrated understanding of instructions, follow-up care. 16:26 Patient left the ED. ko1 Signatures: Dispatcher [employer] EDValerie Feliz, KIMBERLY SNAKER-Yolanda Tyson Lynsay, RN RN ll1 Mary Bang RN RN ko1
[2022-06-16 16:53] VITALS: TEMP 98.5; O2SAT 99
[2022-06-16 16:55] VITALS: BP 122/78
== END 2022-06-16 16:26 | disposition home or self-care (01) ==
LOC: ER 12:07
DX: O20.0 Threatened abortion (principal); Z3A.01 Less than 8 weeks gestation of pregnancy
CPT/HCPCS: 36415; 76817; 80048; 81003; 81025; 84702; 85025; 86900; 86901; 99283